=== PATIENT | male | born 2000 | race African-American/Black ===

== ENCOUNTER 2019-11-06 00:34 | Emergency (ER) | payer OTHER ==
[~2019-11-06] VITALS: Ht 180.3 cm; Wt 79.4 kg
--- NOTE | 2019-11-06 00:51 | NUR ---
DECIDED HE DID NOT WANT TO BE SEEN. THAT HE JUST WANTED TO BE TYIAGED FOR FEVER. PT [facility]
== END 2019-11-06 00:55 | disposition left against medical advice (07) ==
LOC: ER 00:39
DX: Z75.3 Unavailability and inaccessibility of health-care facilities (principal)
CPT/HCPCS: A4663